=== PATIENT | male | born 1985 | race Caucasian/White ===

== ENCOUNTER 2016-10-13 14:52 | Emergency (ER) | payer OTHER ==
[~2016-10-13] VITALS: Ht 170.2 cm; Wt 122.5 kg
[~2016-10-13 14:52] MED LIST: LEVAQUIN500 MG PO; ROBITUSSIN/CODEI5 ML PO
[2016-10-13] MEDS ORDERED: NACL 0.9% 1,000 ML IV SCH (14:56)
[2016-10-13] MEDS ORDERED: NACL 0.9% 1,000 ML IV ONE (14:57)
[2016-10-13 15:05] VITALS: BP 140/82
--- NOTE | 2016-10-13 15:10 | NUR ---
Patient to [facility].
--- NOTE | 2016-10-13 15:13 | NUR ---
[facility] evaluating patient at [facility].
--- NOTE | 2016-10-13 15:15 | NUR ---
PT. STATES HIS THROAT HURTS WHEN SWALLOWING X 4 DAYS, ALSO REPORTS BLISTERS IN THROAT DENIES N/V/D; SKIN IS PINK/WARM/DRY; AAOX4 WITH EVEN AND STEADY GAIT; LUNGS CLEAR BL; HR EVEN AND REGULAR; PT DENIES ANY FEVER, CP, SOB, OR COUGH AT THIS TIME; PATIENT STATES PAIN OF 0/10 AT THIS TIME; VSS; PATIENT POSITIONED FOR COMFORT; HOB ELEVATED; BEDRAILS UP X2; BED DOWN. ER MD MADE AWARE OF PT STATUS.
[2016-10-13] MEDS ORDERED: DEXAMETHASONE 10 MG/ML VIAL IM ONE (15:25)
[2016-10-13 15:53] VITALS: BP 127/72
== END 2016-10-13 15:53 | disposition home or self-care (01) ==
LOC: MED 14:52
DX: J02.9 Acute pharyngitis, unspecified (principal); R03.0 Elevated blood-pressure reading, without diagnosis of hypertension
CPT/HCPCS: 96372; 99283; J1100